=== PATIENT | female | born 1965 | race Caucasian/White ===

== ENCOUNTER 2022-02-18 12:45 | Outpatient (CLI) | payer BC, SELFPAY ==
--- NOTE | ~2022-02-18 | MR_ITS ---
EXAMINATION: MR lumbar spine wo con DATE: 02/18/2022 13:34 INDICATION: Lumbosacral radiculopathy. TECHNIQUE: Magnetic resonance imaging (MRI) of the lumbar spine was performed without intravenous con trast. Sequences included sagittal T2-weighted FSE, sagittal T2-weighted FS FSE, sagittal T1-weighted FSE, and axial T2-weighted FSE. COMPARISON: Lumbar spine radiographs 03/21/2017 FINDINGS: There is 19 degrees dextroscoliosis of thoracolumbar spine. Vertebral body heights are norm al. There is severely decreased disc height at T12-L1, moderately decreased disc height at L1-L2 and L2-L3, mildly decreased disc height at L3-L4, severely decreased disc height at L4-L5, and moderately decreased disc height at L5-S1 with endplate remodeling. The distal spinal cord signal intensity is normal. The conus medullaris is at T12-L1. There are Tarlov cysts in the sacrum. The following disc l evels are specifically discussed: L1-L2: The disc is bulging. There is mild bilateral facet joint osteoarthritis. There is mild left ne ural foraminal stenosis. There is mild central canal stenosis. L2-L3: The disc is bulging and has an annular fissure. There is mild bilateral facet joint osteoarthr itis. There is mild bilateral neural foraminal stenosis. There is mild central canal stenosis. L3-L4: The disc is bulging. There is mild bilateral facet joint osteoarthritis. There is mild bilater al neural foraminal stenosis. There is mild central canal stenosis. L4-L5: The disc is bulging and has an annular fissure. There is mild bilateral facet joint osteoarthr itis. There is mild bilateral neural foraminal stenosis. There is mild central canal stenosis. L5-S1: The disc is bulging and has an annular fissure. There is severe right and moderate left facet joint osteoarthritis. There is mild bilateral neural foraminal stenosis. There is mild central canal stenosis. IMPRESSION: 1. Severe lumbar spondylosis. 2. Thoracolumbar dextroscoliosis. Reviewed, dictated and finalized at location A.
== END 2022-02-18 12:46 | disposition home or self-care (01) ==
DX: M47.27 Other spondylosis with radiculopathy, lumbosacral region (principal)
CPT/HCPCS: 72148

== ENCOUNTER 2022-08-30 13:04 | Outpatient (CLI) | payer BC, SELFPAY ==
[2022-08-30 13:18] LABS: Appearance Urine Clear (Clear); Bilirubin Urine Negative (Negative); Blood Urine Negative (Negative); Color Urine Light Yellow (Yellow); Glucose Urine UA Negative (Negative); Ketones Urine Negative (Negative); Leukocyte Esterase Ur Negative (Negative); Nitrate Urine Negative (Negative); Protein Urine Negative (Negative); Specific Grav Ur <= 1.005 (1.010-1.020); Urobilinogen Urine 0.2 mg/dL (0.2-1.0)
[2022-08-30 13:28] LABS: Add Urine Microscopic? NO
== END 2022-08-30 13:05 | disposition home or self-care (01) ==
LOC: CHSLAB 13:08
DX: R30.9 Painful micturition, unspecified (principal)
CPT/HCPCS: 81003; 87086; 87088

== ENCOUNTER 2023-07-26 08:02 | Emergency (ER) | payer BC, SELFPAY ==
[2023-07-26 08:02] VITALS: BP 164/92; PULSE 77; RESP 18; TEMP 36.1; O2SAT 100
--- NOTE | 2023-07-26 08:07 | ED.DENTAL ---
HPI - Dental/Oral General Chief complaint: Dental/Oral Stated complaint: facial pain Time Seen by Provider: 07/26/23 08:07 Source: patient Mode of arrival: ambulatory Limitations: no limitations History of Present Illness HPI Narrative: patient is 58-year-old female with right face pain for the past week. She went to the dentist and got Keflex. She also has pain medicine. They said she needs to see a root canal specialist. Also she has some cat scratches on both arms. MD Complaint: tooth pain Location: Tooth # ( Tooth 1 and 2) Onset (ago): week(s) (1) Duration: constant Severity: moderate Severity scale (1-10): 6 Relieving factors: nothing Exacerbating factors: chewing, cold, heat and drinking fluids Context: history of dental caries Treatment prior to arrival: oral analgesic Related Data Home Medications Medication Instructions Recorded Confirmed bupropion HCl 300 mg 24 hr tablet, 300 mg PO DAILY 07/26/23 07/26/23 extended release cephalexin 500 mg capsule 500 mg PO TID 07/26/23 07/26/23 fluoxetine 20 mg capsule 20 mg PO DAILY 07/26/23 07/26/23 hydrocodone 10 mg-acetaminophen 1 tablet PO QID PRN Pain (Scale 07/26/23 07/26/23 325 mg tablet Score 7-10) Allergies Allergy/AdvReac Type Severity Reaction Status Date / Time ciprofloxacin Allergy Unknown rash/ Verified 07/26/23 08:09 itchy throat Penicillins Allergy Unknown Unknown Verified 07/26/23 08:09 Review of Systems Review of Systems: All systems reviewed & are unremarkable except as noted in HPI and below Constitutional: Constitutional: Reports no additional constitutional complaints Eyes: Eyes: Reports no additional eye complaints ENT: Reports system reviewed and no additional complaints, except as documented Cardiovascular: Cardiovascular: Reports no additional cardiovascular complaints Respiratory: Respiratory: Reports no additional respiratory complaints Gastrointestinal: Gastrointestinal: Reports no additional gastrointestinal complaints Genitourinary: Genitourinary: Reports no additional female genitourinary complaints Musculoskeletal: Musculoskeletal: Reports no additional musculoskeletal complaints Integumentary/Breasts: Skin/Breast: Reports system reviewed and no additional complaints, except as docu Neurologic: Reports system reviewed and no additional complaints, except as documented Psychiatric: Psychiatric: Reports no additional psychiatric complaints Endocrine: Endocrine: Reports no additional endocrine complaints Hematologic/Lymphatic: Hematologic/Lymphatic: Reports no additional hematologic/lymphatic complaints Allergic/Immunologic: Allergic/Immunologic: Reports no additional allergic/immunologic complaints Exam Const: General: healthy appearing Nutritional Appearance: well nourished Orientation/consciousness: patient oriented x3 HENMT: Head: normal to inspection Ears: external ears normal Face/Nose/Sinus: Normal external nose present Eyes: Conjunctivae: conjunctivae normal Pupils: Equal, round and reactive pupils present EOM: EOMs intact bilaterally Neck: Neck: normal visual inspection Chest: Chest palpation & inspection: normal inspection of the chest Resp: Effort & Inspection: normal respiratory effort and not labored Auscultation: clear to auscultation bilaterally and no crackles Cardio: Rate: regular rate Rhythm: regular rhythm Heart sounds: no murmurs GI: Inspection: non-distended GI Palp: Yes Soft to palpation and No Tenderness to palpation present (GI) Auscultation: normal bowel sounds : General: Yes bladder normal to palpation Back/Spine/Pelvis: Back: no CVA tenderness Skin: General skin exam: normal color Rashes: no rashes Wounds: no wounds Neuro: General: patient oriented x3 Cranial nerves: Yes Nystagmus not present Speech: normal speech Other: pain distribution appears to be in a trigeminal arena Extrem: General: normal to inspection Psych: Mental Status: men
[2023-07-26] MEDS: carBAMazepine 200 MG TABLET PO (08:48)
== END 2023-07-26 08:56 | disposition home or self-care (01) ==
PROVIDERS: Emergency Provider Emergency Medicine
DX: G50.0 Trigeminal neuralgia (principal); S40.812A Abrasion of left upper arm, initial encounter; S40.811A Abrasion of right upper arm, initial encounter; Z79.899 Other long term (current) drug therapy; Z79.891 Long term (current) use of opiate analgesic; W55.03XA Scratched by cat, initial encounter
CPT/HCPCS: 99283; A9270